=== PATIENT | male | born 1950 | race Caucasian/White ===

== ENCOUNTER → 2017-10-23 14:27 | Outpatient (CLI) | payer MEDICARE, OTHER, SELFPAY ==
--- NOTE | 2017-10-23 | IMM_PTH ---
PATIENT: DONNY CARLSON LOC: [facility] U#:[id number] AGE/SX: 75/M ROOM: RE10/23/[address]: Dr. Zurdo Crump MD : 1950 BED: DIS: SPEC #: [id number] RECD: 10/24/17 13:04 STATUS: ALEIDA ANTONIETA #: [id number] YORDAN: 10/23/17 00:[address]: Zurdo Crump DEPT: IMMUNOHISTOCHEMISTRY RECD BY: Michelle Interiano Tissues: A - PROSTATE RIGHT B - PROSTATE RIGHT C - PROSTATE RIGHT D - PROSTATE LEFT Procedures: 34BE12 (add) P40 (add) 34BE12 (initial) PHYSICIAN & INSTITUTION [place] [id number] SPECIMEN INFORMATION: Tissue Source: A - Right apex, B - Right mid, C - Right base, D - Left apex Clinical Info: Elevated PSA Specimen Number: [id number] A-D CPT code: 30788, 99243 x7 METHODOLOGY: Deparaffinized sections of prefer/formalin-fixed tissue or PAP/DQ stained slides are incubated with monoclonal/polyclonal antibodies/oligonucleotide probes. Localization is made via biotin free immunoperoxidase method. Appropriate controls are performed and reacted as expected. Results on target cell population are indicated in the following table: RESULTS: ANTIBODY / CLONE RESULT Block A P40 (BC28) negative 34BE12 (34BE12) negative Block B P40 (BC28) positive 34BE12 (34BE12) positive Block C P40 (BC28) negative 34BE12 (34BE12) negative Block D P40 (BC28) positive 34BE12 (34BE12) positive These tests were developed and their performance characteristics determined by [facility]. They may not have been cleared or approved by the U.S. Food and Drug Administration. The FDA has determined that such clearance or approval is not necessary. INTERPRETATION: A. Right prostate, apex, core biopsy: Adenocarcinoma. B. Right prostate, mid, core biopsy: Benign prostatic tissue. C. Right prostate, base, core biopsy: Adenocarcinoma. D. Left prostate, apex, core biopsy: Benign prostatic tissue. AM:kaiden 10/25/17
--- NOTE | 2017-10-23 | PROSBIL_PTH ---
PATIENT: DONNY CARLSON LOC: [facility] U#:[id number] AGE/SX: 75/M ROOM: RE10/23/[address]: Dr. Zurdo Crump MD : 1950 BED: DIS: SPEC #: [id number] RECD: 10/23/17 14:58 STATUS: ALEIDA ANTONIETA #: [id number] YORDAN: 10/23/17 00:[address]: Zurdo Crump DEPT: SURGICAL PATHOLOGY RECD BY: William Sun Tissues: A - PROSTATE RIGHT B - PROSTATE RIGHT C - PROSTATE RIGHT D - PROSTATE LEFT E - PROSTATE LEFT F - PROSTATE LEFT Procedures: PROSTATE BX HEADER OPERATION: Prostate biopsy PRE-OP DIAGNOSIS: Elevated PSA TISSUE SUBMITTED: A - Right apex, B - Right mid, C - Right base, D - Left apex, E - Left mid, F - Left base MICROSCOPIC DIAGNOSIS A. Right prostate, apex, core biopsy: Adenocarcinoma: [place] grade: 7 (3+4) Cores involved: 2 out of 2 Tissue involved: 2% Greatest tumor length: 1.5 mm B. Right prostate, mid, core biopsy: Benign prostatic tissue. C. Right prostate, base, core biopsy: Adenocarcinoma: [place] grade: 6 (3+3) Cores involved: 2 out of 2 Tissue involved: 2% Greatest tumor length: 1.1 mm D. Left prostate, apex, core biopsy: Benign prostatic tissue. E. Left prostate, mid, core biopsy: Focal high-grade prostatic intraepithelial neoplasia (HGPIN). F. Left prostate, base, core biopsy: Benign prostatic tissue. AM:kaiden 10/25/17 COMMENT Immunohistochemistry ([id number]) supports the above diagnosis. Case has been reviewed in consultation with Dr. Dave who concurs with the above diagnosis. IDC:SJ MICROSCOPIC DESCRIPTION Slides are reviewed. GROSS DESCRIPTION A - Received is one container designated prostate, right apex. The specimen consists of two elongated fragments of light robertson-white soft tissue each measuring 1.2 cm in length and 0.1 cm in diameter. The specimen is totally submitted in one cassette. B - Received is one container designated prostate, right mid. The specimen consists of two elongated fragments of light robertson-white soft tissue measuring 1.5 to 2 cm in length and 0.1 cm in diameter. The specimen is totally submitted in one cassette. C - Received is one container designated prostate, right base. The specimen consists of two elongated fragments of light robertson-white soft tissue each measuring 1.2 cm in length and 0.1 cm in diameter. The specimen is totally submitted in one cassette. D - Received is one container designated prostate, left apex. The specimen consists of two elongated fragments of light robertson-white soft tissue each measuring 1 cm in length and 0.1 cm in diameter. The specimen is totally submitted in one cassette. E - Received is one container designated prostate, left mid. The specimen consists of three elongated fragments of light robertson-white soft tissue measuring 0.3 to 1 cm in length and 0.1 cm in diameter. The specimen is totally submitted in one cassette. F - Received is one container designated prostate, left base. The specimen consists of two elongated fragments of light robertson-white soft tissue measuring 1 and 1.8 cm in length and 0.1 cm in diameter. The specimen is totally submitted in one cassette. / SJ:rg 10/23/17 TC:0 CPT: 47291 x6
== END ==
PROVIDERS: Family Provider Nurse Practitioner Family; PCP Nurse Practitioner Family; Visit Provider Urology
DX: R97.20 Elevated prostate specific antigen [PSA] (principal)
CPT/HCPCS: 88305; 88341; 88342; G0416

== ENCOUNTER 2018-03-06 05:51 | Inpatient (IN) | payer MEDICARE, OTHER, SELFPAY ==
[2018-02-25 13:46] VITALS: BP 148/74; PULSE 60; RESP 17; TEMP 36.9; O2SAT 98
[2018-02-25 14:45] LABS: Hematocrit 45.9 % (40-54); Hemoglobin 15.4 g/dl (13.0-16.5); Mean Corp Hgb Conc 33.6 g/gl (32-36); Mean Corpuscular Hgb 31.2 pg (27.0-32.0); Mean Corpuscular Volume 92.9 fL (80-94); Mean Platelet Vol. 10.1 fl (6.2-12.0); Platelet Count 244 K/mm3 (150-450); RBC Distribution Width CV 13.1 % (11.6-14.6); RBC Distribution Width SD 44.7 fl (35.1-43.9); Red Blood Count 4.94 M/mm3 (4.6-6.2); White Blood Count 6.3 K/mm3 (4.4-11.0)
[2018-02-25 14:46] LABS: Scan Indicated on CBC? Y/N NO
[2018-02-25 15:02] LABS: Anion Gap 6 (5-15); BUN 13 mg/dL (7-18); Calcium,Total 8.9 mg/dL (8.5-10.1); Chloride 106 mmol/L (98-107); Creatinine, Serum 0.81 mg/dL (0.70-1.30); EST Glomerular Filtration Rate 101 mL/min (>60); Est Glom Filt Rate - Afr Amer 122 mL/min (>60); Glucose 91 mg/dL (74-106); Potassium 3.8 mmol/L (3.5-5.1); Sodium Level 140 mmol/L (136-145)
[2018-03-06] VITALS (16 sets, daily range): BP systolic 87–143; BP diastolic 52–120; PULSE 51–91; RESP 16–20; TEMP 36.1–36.8; O2SAT 97–100; BMI 30.4
--- NOTE | 2018-03-06 07:30 | PROST_PTH ---
PATIENT: DONNY CARLSON LOC: [facility] U#:[id number] AGE/SX: 67/M [place]OM[place] [facility] RE03/06/[address]: Dr. Zurdo Crump MD : 1950 BED: 1 DIS: 03/07/2018 SPEC #: [id number] RECD: 03/06/18 13:50 STATUS: ALEIDA RECaterina #: [id number] YORDAN: 03/06/18 07:[address]: Zurdo Crump DEPT: SURGICAL PATHOLOGY RECD BY: Del Santiago ENTERED: 03/06/18 14:12 SP TYPE: PROSTATE OTHR DR: Gardenia Carballo, JORDAN Tissues: Prostate, NOS Procedures: Surgery Specimen Level HEADER OPERATION: Laparoscopic robotic radical prostatectomy PRE-OP DIAGNOSIS: Prostate cancer, elevated PSA TISSUE SUBMITTED: Prostate MICROSCOPIC DIAGNOSIS Prostate: Adenocarcinoma, E[place] grade 7 (3+4). See cancer checklist below. AM:kaiden 03/08/18 COMMENT PROSTATE CANCER (RADICAL) SUMMARY: Procedure ? Radical prostatectomy Prostate size ? 6 x 5.5 x 5 cm Prostate weight ? 109.3 gm Lymph node sampling ? no lymph nodes present Histologic type ? adenocarcinoma. Histologic grade ([place] Pattern): Primary pattern - 3 Secondary pattern - 4 Tertiary pattern ? not applicable Total Ely score - 7 Tumor Quantitation: Proportion (%) of prostate involved by tumor ? less than 10% Tumor size ? 1.6 x 0.7 x 0.5 cm (estimated from glass slides) Extraprostatic extension ? not identified Seminal vesicle invasion ? not identified Margins ? uninvolved by invasive carcinoma. Treatment effect on carcinoma ? not identified Lymph-Vascular invasion ? not identified Perineural invasion ? present (focal) PATHOLOGIC STAGE: pT2c Nx Mx The above summary is in compliance with [employer] (CAP) Cancer Protocols Checklist and [place] [employer] on Cancer (AJCC), Staging Manual, 8th Ed. MICROSCOPIC DESCRIPTION Slides are reviewed. GROSS DESCRIPTION Received in fixative is one container labeled with the patient's name and designated prostate. The specimen consists of a prostate measuring 6 cm transversely, 5.5 cm craniocaudally and 5 cm anterior-posteriorly. The gland weighs 109.3 gm. The external surface is smooth and glistening. No distinct rubbery nodularities are identified. The seminal vesicles and portions of vas deferens that are attached are grossly unremarkable. The specimen is differentially inked as follows: anterior ? red, right half ? blue, left half ? black, and entire posterior portion ? black. On sectioning, no distinct mass lesion or nodularity is identified. The gland is cut from apex to base, transversely in approximately 3 to 4 mm sections. Maintenance Repairman sections are submitted in 20 cassettes as follows: 1 ? seminal vesicles, 2 ? distal urethral margin, 3 ? proximal urethral margin (bladder shave), 4 ? most basal section of prostate, 5-8 ? apex, 914 ? mid portion, 15-20 ? basal portion of gland. / AM:kaiden 03/07/18 TC:0 CPT:34203
[2018-03-06] MEDS: Cefazolin 2 GM in 0.9% Normal Saline 100 ML IV (07:45)
[2018-03-06] MEDS: Lubricating Jelly 60 GM Tube 30 GM TOPICAL (08:27)
[2018-03-06] MEDS: Bupivacaine Mpf 0.5% 30 ML VIAL (11:13)
--- NOTE | 2018-03-06 11:25 | PCM.OPRPT ---
Report of Operation Date of Procedure: 03/06/18 Pre-Operative Diagnosis: Prostate cancer Post-Operative Diagnosis: Same Surgery/Procedure Performed:: Laparoscopic robotic assisted radical prostatectomy with bilateral nerve sparing, EMG monitoring, suture suspension of the urethra. Description of Surgical Findings:: 67-year-old male has a history of prostate cancer we looked at options of management and he wants to proceed with a radical prostatectomy with bilateral nerve sparing understands the risks of surgery including bleeding infection scar tissue formation incontinence loss of erections we talked about how the surgery is done with expect postoperatively and his postoperative course. 67-year-old male taken back to the operating room, after smooth induction of anesthesia, timeout was performed patient was identified surgery was reviewed, patient was then placed supine on the table with the legs in stirrups for dorsal lithotomy position modified for a radical prostatectomy, the abdomen was shaved prepped and draped in usual sterile fashion, I then sprayed a small incision above the umbilicus and then used a Veress needle to enter the peritoneal cavity insufflated the peritoneal cavity CO2 gas and then placed the camera trocar right trocar left trocar and a second left trocar variceal port and suction port. We then started by first reflecting the sigmoid colon off the lateral wall and then gently retracted out of the pelvis and then went down deep in the pelvis and identified the right seminal vesicle and vas deferens dissected these out and then dissected out the left vas deferens seminal vesicle and then dissected below the prostate above the knee do not be his fascia and then we pulled up out of the pelvis we dropped the bladder incised the lateral umbilical umbilical ligament on the left and right side drop in the bladder creating the space of Retzius transected to the medial umbilical ligament and put the bladder on traction with the fourth arm and then went inspected lymph nodes the lymph looked looked negative so we did not do a lymph node dissection there is no enlarged lymph nodes. I then went up to the apex incised the endopelvic fascia on both sides freed the prostate and the endopelvic fascia on both the left and right side and the lead levator anal muscles I then dissected the apex dorsal vein complex was identified a stitch was placed at the dorsal vein complex after securing the dorsal vein complex then we opened of the fascia and the lateral aspect of each side wall of the prostate had a very large prostate with the thin fascia over the top this allowed me to peel the fascia down laterally in the left and right side identified neurovascular bundles and then went to the bladder neck transected to the bladder neck down to the prostate had a very enlarged prostate with protruding adenomatous tissue into the bladder make sure that all the tissue was removed had to make a very large bladder neck opening because of this. Once the separation between the bladder neck prostate was completed with a very large open bladder neck then I placed the EMG monitoring probes into the abdomen we checked the right side identified the neurovascular bundle on the right side checked the left side and then identified the neurovascular bundle the left side the probes were then removed I then proceeded with the right side and place clips on the pedicle and then identified the neurovascular bundle teases off the prostate and the posterior aspect all the way to the apex very carefully making sure not to violate into the prostate I then went to the left side clipped the pedicles and then dissected the left neurovascular bundle off the prostate and the left side all the way up to the apex we then accompanied came above the prostate transected to the dorsal vein complex then identified the vein in the dorsal vein complex and then identified the urethra circumferentially dissected around the urethra I then placed in the extra [id number] running suture with a 3-0 Vicryl on the dorsal vein complex make sure that this was completely sealed and then transected the urethra and the prostate was then removed I then proceeded with the reconstruction of the bladder neck we used a 3-0 Vicryl to reconstruct the bladder neck to make it the size of the pinky also making sure that the mucosa was everted on the bladder neck after completing the bladder neck reconstruction tennis racquet fashion starting posterior to anterior then I did a anastomosis and the suspension of the urethra using a V lock stitch 30V lock stitch to suspend the urethra from the bladder neck to the ureter to the urethral opening over a catheter once this was completed then catheter was placed we flushed the bladder there was no leakage checked for bleeding and there was no bleeding we did place an extra clip and an arterial bleeder in the pelvis and then we extracted the prostate to the umbilicus trocar closed the variceal trocar with a Real Rico stitch removed all the ports patient's anesthetic was reversed we closed the supraumbilical incision with [id number] stitches closed the 8 the variceal trocar with a Rico stitch and all the skin incisions were then closed with subcuticular stitches. All the sponges and needle counts were reported to be correct catheter was flushed to clear patient anesthetic was reversed and extubated taken back to PACU in good condition. Type of Anesthesia:: General Estimated Blood Loss (mL): 250 - Admit VTE Documentation VTE Present on Admission: No VTE Mechan Device Prophylaxis: SCD's VTE Pharm Prophylaxis ordered?: No Reason prophylaxis not ordered:: Treatment Not Indicated
[2018-03-06 12:14] LABS: Hematocrit 38.5 % (40-54); Hemoglobin 13.3 g/dl (13.0-16.5); Mean Corp Hgb Conc 34.5 g/gl (32-36); Mean Corpuscular Hgb 32.4 pg (27.0-32.0); Mean Corpuscular Volume 93.9 fL (80-94); Mean Platelet Vol. 10.1 fl (6.2-12.0); Platelet Count 215 K/mm3 (150-450); RBC Distribution Width CV 12.8 % (11.6-14.6); RBC Distribution Width SD 42.9 fl (35.1-43.9); Scan Indicated on CBC? Y/N NO; White Blood Count 14.2 K/mm3 (4.4-11.0)
[2018-03-06 12:25] LABS: Anion Gap 7 (5-15); BUN 14 mg/dL (7-18); BUN/Creat Ratio 14.7 RATIO (10-20); Calcium,Total 8.3 mg/dL (8.5-10.1); Chloride 111 mmol/L (98-107); Creatinine, Serum 0.95 mg/dL (0.70-1.30); EST Glomerular Filtration Rate 84 mL/min (>60); Est Glom Filt Rate - Afr Amer 101 mL/min (>60); Estimated Creatinine Clearance 75.45 ml/min; Glucose 120 mg/dL (74-106); Potassium 4.2 mmol/L (3.5-5.1); Sodium Level 145 mmol/L (136-145)
[2018-03-06] MEDS: Ketorolac 15 MG/ML Vial IV ×2 (12:55→18:19)
[2018-03-06] MEDS: Lactated Ringers 1,000 ML 125 ML IV ×3 (12:55→21:38)
[2018-03-06] MEDS: Ciprofloxacin 500 MG Tablet PO (21:41)
[2018-03-06] MEDS: Docusate Sodium 100 MG Capsule 200 MG PO (21:41)
[2018-03-07] MEDS: Ketorolac 15 MG/ML Vial IV ×3 (00:20→11:36)
[2018-03-07] MEDS: 0.9% NaCl Peripheral Flush Adult/Peds IV ×3 (00:21→11:36)
[2018-03-07 02:00] VITALS: BP 104/56; PULSE 88; RESP 18; TEMP 36.7; O2SAT 95
[2018-03-07 06:15] LABS: Hematocrit 36.5 % (40-54); Hemoglobin 12.5 g/dl (13.0-16.5); Mean Corp Hgb Conc 34.2 g/gl (32-36); Mean Corpuscular Hgb 32.1 pg (27.0-32.0); Mean Corpuscular Volume 93.6 fL (80-94); Mean Platelet Vol. 10.3 fl (6.2-12.0); Platelet Count 213 K/mm3 (150-450); RBC Distribution Width CV 12.7 % (11.6-14.6); RBC Distribution Width SD 42.8 fl (35.1-43.9); White Blood Count 11.1 K/mm3 (4.4-11.0)
[2018-03-07 06:18] LABS: Scan Indicated on CBC? Y/N NO
[2018-03-07] MEDS: Lactated Ringers 1,000 ML 125 ML IV (06:23)
[2018-03-07 06:37] LABS: Anion Gap 7 (5-15); BUN 13 mg/dL (7-18); BUN/Creat Ratio 16.5 RATIO (10-20); Chloride 110 mmol/L (98-107); Creatinine, Serum 0.79 mg/dL (0.70-1.30); EST Glomerular Filtration Rate 104 mL/min (>60); Est Glom Filt Rate - Afr Amer 126 mL/min (>60); Estimated Creatinine Clearance 69.35 ml/min; Glucose 97 mg/dL (74-106); Potassium 3.7 mmol/L (3.5-5.1); Sodium Level 144 mmol/L (136-145)
--- NOTE | 2018-03-07 07:37 | PCM.DC.URO ---
Discharge Diet: Light diet - advance as tolerated Discharge Activity: May not drive while taking narcotic pain medications. Return to work on:: 04/04/18 May resume sexual activity in: 6 weeks Lifting Restrictions: no lifting. Call your doctor if your incision/area has: Continuous Slow Oozing, Sudden Increased Bleeding, Increased Pain/ Swelling, Increased Redness, Foul Smelling Discharge, Swelling at the incision site Suture Line Care: Avoid Pulling/Pushing, Avoid Pinching/Bending Catheter: Carmichael to leg bag, Carmichael to large bag Drain: [place] Instructions: Discharge Instructions for Radical Prostatectomy Allergies/Adverse Reactions: Allergies No Known Allergies Allergy (Verified 02/25/18 13:40) Medications to take at Discharge Aspirin [Aspir-Low] 81 mg PO DAILY 02/25/18 Cinnamon Bark [Cinnamon] 500 mg PO DAILY 02/25/18 Cranberry Fruit Concentrate [Azo Cranberry] 250 mg PO DAILY 02/25/18 Fish Oil/Dha/Epa [Fish Oil 1,200 mg Fish Oil] 1 cap PO DAILY 02/25/18 Multivit-Min/FA/Vit K/Lycopene [One-A-Day Men's 50 Plus Tablet] 1 each PO DAILY 02/25/18 Saw [place] 160 mg PO DAILY 02/25/18 Turmeric/Turmeric Root Extract [Turmeric 500 mg Capsule] 1 each PO DAILY 02/25/18 Ciprofloxacin [Cipro] 500 mg PO BID #14 tab 03/06/18 Docusate Sodium [Colace] 100 mg PO BID #20 cap 03/06/18 Hydrocodone/Acetaminophen [[place] 5-325 Tablet] 1 ea PO Q4H PRN PRN 5 Days #20 tab 03/06/18 The following prescriptions were given: Hydrocodone/Acetaminophen [[place] 5-325 Tablet] 1 ea PO Q4H PRN PRN 5 Days #20 tab PRN Reason: Pain Ciprofloxacin [Cipro] 500 mg PO BID #14 tab Docusate Sodium [Colace] 100 mg PO BID #20 cap Primary Care Physician: Gardenia Carballo NP-C [Primary Care Provider] - Test Results: Test results from this visit will be discussed in further detail at your follow-up appointment, if applicable. Please Follow Up With: Zurdo Crump MD When: keep appt next .
[2018-03-07 09:36] VITALS: BP 125/60; PULSE 67; RESP 18; TEMP 37.2; O2SAT 99
[2018-03-07] MEDS: Docusate Sodium 100 MG Capsule 200 MG PO (09:37)
[2018-03-07] MEDS: Ciprofloxacin 500 MG Tablet PO (09:37)
--- NOTE | 2018-03-07 12:20 | CASEMGMT ---
CM Assessment completed. DC PLAN: home -Intro role of CM to and patient.He was independent prior to surgery. is able to assist on dc with driving, f/u and any care needs. Claudia ADAMN RN ACM
== END 2018-03-07 13:00 | disposition home or self-care (01) | DRG 708 ==
LOC: ACINP 05:52 → MS2 11:17
PROVIDERS: Admitting Provider Urology; Family Provider Nurse Practitioner Family; PCP Nurse Practitioner Family; Visit Provider Urology
PROC: 0VT04ZZ Resection of Prostate, Percutaneous Endoscopic Approach (ICD-10-PCS; CPT 55866; principal; 2018-03-06 07:10)
DX: C61 Malignant neoplasm of prostate (principal)
CPT/HCPCS: 36415; 80048; 85027; 86850; 86900; 86920; 86922; 88309; 93005; J7120; A4216

== ENCOUNTER → 2021-01-03 15:09 | Outpatient (CLI) | payer MEDICARE, OTHER, SELFPAY ==
[2018-03-06 14:03] VITALS: BMI 30.4
[2021-01-03 16:43] LABS: PSA,Total- Diagnostic < 0.01 ng/mL (0.0-4.0)
== END ==
PROVIDERS: PCP Nurse Practitioner Family; Referring Provider Urology; Visit Provider Urology
DX: C61 Malignant neoplasm of prostate (principal)
CPT/HCPCS: 36415; 84153